=== PATIENT | female | born 1990 | race Two or more races ===

== ENCOUNTER 2018-10-01 04:31 | Emergency (ER) | payer SELFPAY ==
[~2018-10-01] VITALS: Ht 162.6 cm; Wt 68.0 kg
[2018-10-01 04:43] VITALS: BP 146/98
--- NOTE | 2018-10-01 04:44 | NUR ---
ED Nurse Note: Patient walked in to ER c/o lower abdominal pain, burning sensation during urination. AAO x4, VSS at this time.
[2018-10-01] MEDS ORDERED: Morphine Sulfate 4mg/ml Inj (IV USE ONLY) IVP ONE (04:45)
[2018-10-01] MEDS ORDERED: cefTRIAXone 1 GM in NS 55 ML IVPB ONE (04:45)
[2018-10-01] MEDS ORDERED: HYDROCODON-ACE1 EA15 ORAL (04:49)
[2018-10-01] MEDS ORDERED: CEPHALEXIN500 MG ORAL (04:49)
--- NOTE | 2018-10-01 04:49 | Emergency Room Report ---
History of Present Illness General Chief Complaint: Female Urogenital Problems Source: Patient Present Illness HPI This is a 27-year-old female with no past medical history. She had previous UTIs in the past. She presents with chief complaint of dysuria, frequency, urgency and pain. Onset for last 4 days. She tried [id number] Pyridium without any relief. Pain is 9 out of 10. Worse with urination. No nausea no vomiting. No back pain. No fever. Allergies: Coded Allergies: No Known Allergies (Unverified , 10/01/18) Patient History Past Medical History: see triage record, old chart reviewed Past Surgical History: none Pertinent Family History: none Social History: Denies: smoking Last Menstrual Period: 09/08/18 Now: No : 2 Para: 2 Immunizations: other Reviewed Nursing Documentation: PMH: Agreed; PSxH: Agreed Nursing Documentation-PMH Past Medical History: No Stated History Review of Systems Eye: Denies: eye pain, blurred vision ENT: Denies: ear pain, nose congestion, throat swelling Respiratory: Denies: cough, shortness of breath Cardiovascular: Denies: chest pain, palpitations Gastrointestinal: Denies: abdominal pain, diarrhea, nausea, vomiting Genitourinary: Reports: dysuria, frequency, pain, urgency Musculoskeletal: Denies: back pain, joint pain Skin: Denies: rash Neurological: Denies: headache, numbness Endocrine: Denies: increased thirst, increased urine Hematologic/Lymphatic: Denies: easy bruising All Other Systems: negative except mentioned in HPI Physical Exam Vital Signs Date Time Temp Pulse Resp B/P (MAP) Pulse Ox O2 Delivery O2 Flow Rate FiO2 10/01/18 04:37 97.9 124 16 146/98 (114) 98 Room Air Vitals unremarkable except for tachycardia Sp02 EP Interpretation: reviewed, normal General Appearance: well appearing, no apparent distress, alert Head: normocephalic, atraumatic Eyes: bilateral eye PERRL, bilateral eye EOMI ENT: hearing grossly normal, normal pharynx Neck: full range of motion, supple, no meningismus Respiratory: chest non-tender, lungs clear, normal breath sounds Cardiovascular #1: regular rate, rhythm, no murmur Gastrointestinal: normal bowel sounds, non tender, no mass, no organomegaly, no bruit, non-distended Musculoskeletal: back normal, gait/station normal, normal range of motion Psychiatric: mood/affect normal Medical Decision Making Diagnostic Impression: Primary Impression: Urinary tract infection Qualified Codes: N30.00 - Acute cystitis without hematuria ER Course Patient with symptoms consistent with UTI. No evidence of pyelonephritis or sepsis. Heart rate in the 100 when I examine her. Dose of IV antibiotics and pain medication given here. Will discharge home. Last Vital Signs Date Time Temp Pulse Resp B/P (MAP) Pulse Ox O2 Delivery O2 Flow Rate FiO2 10/01/18 04:43 97.9 16 146/98 98 Room Air 10/01/18 04:37 124 Status: improved Disposition: HOME, SELF-CARE Condition: Stable Scripts Cephalexin* (KEFLEX*) 500 Mg Capsule 500 MG ORAL TID, #21 CAP Prov: Rodri Nahs MD 10/01/18 Hydrocodone/Acetaminophen 5-325* (HYDROCODONE/ACETAMINOPHEN 5-325*) 1 Each Tablet 1 TAB ORAL Q6H PRN for For Pain, #10 TAB 0 Refills Prov: Rodri Nash MD 10/01/18 Patient Instructions: Urinary Tract Infection Additional Instructions: Increase fluids. Follow-up with your doctor in 7 to 10 days for recheck. Return if symptoms worsen or not better within 2 days. Rodri Nash MD Oct 01, 2018 04:49
[2018-10-01] MEDS ORDERED: Ketorolac 30mg Inj IV ONE (06:00)
[2018-10-01 06:12] VITALS: BP 146/98
--- NOTE | 2018-10-01 06:13 | NUR ---
ED Nurse Note: Pt cleared by health care Provider for discharge. DC instructions/prescription was given and explained to pt and verbalized understanding of teachings. All medical deviecs such as ID band removed. Pt is AAO x4, ambulatory and left with all personal belongings.
[2018-10-01 06:15] LABS: APPEARANCE,URINE CLOUDY; BILIRUBIN, URINE NEGATIVE (NEGATIVE); COLOR,URINE BROWN; GLUCOSE, URINE (UA) NEGATIVE (NEGATIVE); KETONES,URINE 1+ (NEGATIVE); LEUKOCYTE ESTERASE ,URINE 3+ (NEGATIVE); NITRITE,URINE POSITIVE (NEGATIVE); PH,URINE 6.5 (4.5-8.0); PROTEIN,URINE 3+ (NEGATIVE); UROBILINOGEN,URINE NORMAL MG/DL (0.0-1.0)
== END 2018-10-01 06:13 | disposition home or self-care (01) ==
LOC: EMR 04:49
DX: N30.00 Acute cystitis without hematuria (principal)
CPT/HCPCS: 81003; 87086; 87181; 96361; 96365; 96375; 99284; J0696; J1885; J2270; J2405